=== PATIENT | male | born 1935 | race Caucasian/White ===

== ENCOUNTER → 2020-06-04 | Outpatient (CLI) | payer OTHER ==
[2020-06-04 12:21] LABS: BASOPHILS ABSOLUTE AUTO 0.04 K/mm3 (0.00-0.23); BASOPHILS PERCENT AUTO 0 % (0-2); EOSINOPHILS PERCENT AUTO 2 % (0-6); Hematocrit 44.4 % (37.0-53.0); Hemoglobin 15.1 g/dL (13.5-17.5); IMMATURE GRAN ABSOLUTE AUTO 0.03 K/mm3 (0.00-0.10); IMMATURE GRAN PERCENT AUTO 0 % (0-1); LYMPHOCYTES ABSOLUTE AUTO 1.46 K/mm3 (0.84-5.20); LYMPHOCYTES PERCENT AUTO 14 % (21-46); MONOCYTES PERCENT AUTO 6 % (4-13); Mean Corpuscular HGB 32.5 pg (26.0-34.0); Mean Corpuscular Volume 96 fL (80-100); Mean Platelet Volume 10.7 fL (9.1-12.4); NEUTROPHILS ABSOLUTE AUTO 7.82 K/mm3 (1.96-9.15); NEUTROPHILS PERCENT AUTO 77 % (41-73); Platelet Count 191 K/mm3 (150-400); RDW Coefficient Variation 12.4 % (11.7-14.2); RDW Standard Deviation 43.3 fL (35.1-46.3); Red Blood Cell Count 4.64 M/mm3 (4.30-5.90); White Blood Cell Count 10.15 K/mm3 (4.00-11.30)
[2020-06-04 12:32] LABS: Alanine Aminotransfer (ALT/SGP 34 U/L (12-78); Albumin, Blood 3.8 g/dL (3.4-5.0); Albumin/Globulin Ratio 1.1 (0.8-1.8); Alk Phos 166 U/L (50-136); Anion Gap 5 mmol/L (6-16); Aspartate Aminotrans (AST/SGOT 18 U/L (12-37); Bilirubin, Total 0.8 mg/dL (0.1-1.0); Blood Urea Nitrogen 20 mg/dL (8-24); Bun/Creatinine Ratio 17.1 (12.0-20.0); CO2, Blood 27 mmol/L (21-32); Calcium, Blood 8.7 mg/dL (8.5-10.1); Chloride, Blood 105 mmol/L (98-108); Creatinine, Blood 1.17 mg/dL (0.60-1.20); Globulin, Blood 3.6 g/dL (2.2-4.0); Glomerular Filtration Rate >60 (60-); Glucose, Blood 377 mg/dL (70-99); Potassium, Blood 4.7 mmol/L (3.5-5.5); Sodium, Blood 137 mmol/L (136-145); Total Protein, Blood 7.4 g/dL (6.4-8.2)
== END ==
LOC: LAB SHORT 10:25 → LAB 10:25
PROVIDERS: Family Medicine
DX: R10.9 Unspecified abdominal pain (principal)
CPT/HCPCS: 80053; 83036; 85025

== ENCOUNTER 2021-01-26 15:10 | Emergency (ER) | payer OTHER ==
[~2021-01-26] VITALS: Ht 172.7 cm; Wt 90.7 kg
[2021-01-26 15:39] LABS: BASOPHILS ABSOLUTE AUTO 0.03 K/mm3 (0.00-0.23); BASOPHILS PERCENT AUTO 0 % (0-2); EOSINOPHILS ABSOLUTE AUTO 0.21 K/mm3 (0.00-0.68); EOSINOPHILS PERCENT AUTO 2 % (0-6); Hematocrit 43.1 % (37.0-53.0); Hemoglobin 14.7 g/dL (13.5-17.5); IMMATURE GRAN ABSOLUTE AUTO 0.04 K/mm3 (0.00-0.10); IMMATURE GRAN PERCENT AUTO 0 % (0-1); LYMPHOCYTES ABSOLUTE AUTO 1.81 K/mm3 (0.84-5.20); LYMPHOCYTES PERCENT AUTO 18 % (21-46); MONOCYTES ABSOLUTE AUTO 0.83 K/mm3 (0.16-1.47); MONOCYTES PERCENT AUTO 8 % (4-13); Mean Corpuscular HGB Conc 34.1 g/dL (31.5-36.5); Mean Corpuscular Volume 97 fL (80-100); Mean Platelet Volume 10.1 fL (9.1-12.4); NEUTROPHILS ABSOLUTE AUTO 7.02 K/mm3 (1.96-9.15); NEUTROPHILS PERCENT AUTO 71 % (41-73); Platelet Count 197 K/mm3 (150-400); RDW Coefficient Variation 12.4 % (11.7-14.2); RDW Standard Deviation 44.1 fL (35.1-46.3); Red Blood Cell Count 4.46 M/mm3 (4.30-5.90); White Blood Cell Count 9.94 K/mm3 (4.00-11.30)
[2021-01-26 15:59] LABS: Alanine Aminotransfer (ALT/SGP 31 U/L (12-78); Albumin, Blood 3.3 g/dL (3.4-5.0); Albumin/Globulin Ratio 0.9 (0.8-1.8); Alk Phos 156 U/L (50-136); Anion Gap 7 mmol/L (6-16); Aspartate Aminotrans (AST/SGOT 14 U/L (12-37); Bilirubin, Direct 0.1 mg/dL (0.0-0.3); Bilirubin, Indirect 0.4 mg/dL (0.1-0.7); Bilirubin, Total 0.5 mg/dL (0.1-1.0); Blood Urea Nitrogen 29 mg/dL (8-24); Bun/Creatinine Ratio 18.1 (12.0-20.0); CO2, Blood 23 mmol/L (21-32); Calcium, Blood 8.5 mg/dL (8.5-10.1); Chloride, Blood 108 mmol/L (98-108); Globulin, Blood 3.7 g/dL (2.2-4.0); Glomerular Filtration Rate 41 (60-); Glucose, Blood 266 mg/dL (70-99); Potassium, Blood 4.5 mmol/L (3.5-5.5); Sodium, Blood 138 mmol/L (136-145); Troponin I <0.015 ng/mL (0.000-0.040)
[2021-01-26] MEDS ORDERED: ALMACONE SUSPE355 ML PO (17:35)
[2021-01-26] MEDS ORDERED: GABAPENTIN600 MG PO (18:19)
[2021-01-26] MEDS ORDERED: BASAGLAR K100 UNIT/3 SC (18:20)
[2021-01-26] MEDS ORDERED: ATOR40TA PO (18:28)
[2021-01-26] MEDS ORDERED: LOW DOSE ASPIRI81 M1 PO (18:29)
[2021-01-26] MEDS ORDERED: JARDIANCE25 MG PO (18:29)
[2021-01-26] MEDS ORDERED: ZESTRIL40 M1 PO (18:30)
== END 2021-01-26 20:17 | disposition home or self-care (01) ==
LOC: ER 15:10
PROVIDERS: Student in an Organized Health Care Education/Training Program
DX: R07.89 Other chest pain (principal); E11.65 Type 2 diabetes mellitus with hyperglycemia; I25.2 Old myocardial infarction; Z79.899 Other long term (current) drug therapy
CPT/HCPCS: 71046; 80048; 80076; 83690; 84484; 85025; 93005; 93010; 99285-25; J7030

== ENCOUNTER 2021-08-29 12:00 | Inpatient (IN) | payer OTHER ==
[~2021-08-29] VITALS: Ht 172.7 cm; Wt 90.7 kg
[~2021-08-29 12:00] MED LIST: ALMACONE SUSPE355 ML PO; ATOR40TA PO; BASAGLAR K100 UNIT/3 SC; BISA10S PR; DOC250 PO; GABAPENTIN600 MG PO; HYDR1TAB94 PO; JARDIANCE25 MG PO; LOW DOSE ASPIRI81 M1 PO; ONDA4ODT MM; ZESTRIL40 M1 PO
[2021-08-29] MEDS ORDERED: Bentyl20 MG PO (12:25)
[2021-08-29 12:54] LABS: BASOPHILS ABSOLUTE AUTO 0.02 K/mm3 (0.00-0.23); BASOPHILS PERCENT AUTO 0 % (0-2); EOSINOPHILS PERCENT AUTO 0 % (0-6); Hematocrit 46.5 % (37.0-53.0); Hemoglobin 16.3 g/dL (13.5-17.5); IMMATURE GRAN ABSOLUTE AUTO 0.07 K/mm3 (0.00-0.10); IMMATURE GRAN PERCENT AUTO 0 % (0-1); LYMPHOCYTES ABSOLUTE AUTO 0.58 K/mm3 (0.84-5.20); LYMPHOCYTES PERCENT AUTO 3 % (21-46); MONOCYTES ABSOLUTE AUTO 0.72 K/mm3 (0.16-1.47); MONOCYTES PERCENT AUTO 4 % (4-13); Mean Corpuscular HGB 32.9 pg (26.0-34.0); Mean Corpuscular HGB Conc 35.1 g/dL (31.5-36.5); Mean Corpuscular Volume 94 fL (80-100); Mean Platelet Volume 10.1 fL (9.1-12.4); NEUTROPHILS ABSOLUTE AUTO 16.81 K/mm3 (1.96-9.15); NEUTROPHILS PERCENT AUTO 92 % (41-73); Platelet Count 220 K/mm3 (150-400); RDW Coefficient Variation 12.4 % (11.7-14.2); RDW Standard Deviation 43.1 fL (35.1-46.3); Red Blood Cell Count 4.95 M/mm3 (4.30-5.90)
[2021-08-29 13:20] LABS: Albumin, Blood 3.9 g/dL (3.4-5.0); Bun/Creatinine Ratio 22.9 (12.0-20.0); Calcium, Blood 9.8 mg/dL (8.5-10.1); Creatinine, Blood 1.88 mg/dL (0.60-1.20); Globulin, Blood 3.8 g/dL (2.2-4.0); Potassium, Blood 4.8 mmol/L (3.5-5.5); Total Protein, Blood 7.7 g/dL (6.4-8.2)
[2021-08-29 15:46] LABS: Source, Urine Clean Catch
[2021-08-29 16:19] LABS: Appearance, Urine Clear (Clear); Bilirubin, Urine Neg (Neg); Blood, Urine 1+ (Neg); Color, Urine Yellow (P-Yellow); Glucose Qualitative, Urine 4+ (Neg); Ketones, Urine 3+ (Neg); Leukocyte Esterase, Urine Neg (Neg); Nitrite, Urine Neg (Neg); Protein, Urine 2+ (Neg); Urobilinogen, Urine NORM (Normal)
[2021-08-29 16:47] LABS: Influenza A, PCR NEGATIVE (NEGATIVE); Influenza B, PCR NEGATIVE (NEGATIVE); Resp Syncytial Virus, PCR NEGATIVE (NEGATIVE); SARS-Cov-2 (COVID-19) PCR, MMC NEGATIVE (NEGATIVE)
[2021-08-29 16:50] LABS: Bacteria Few /hpf; Red Blood Cells, Urine 0-2 /hpf (0-2); Squamous Epithelial Cells Not Seen /hpf (Few); White Blood Cells, Urine 0-2 /hpf (0-5)
[2021-08-29 16:51] LABS: Amorphous Light (0-Heavy)
[2021-08-30 18:43] LABS: BASOPHILS ABSOLUTE AUTO 0.04 K/mm3 (0.00-0.23); BASOPHILS PERCENT AUTO 0 % (0-2); EOSINOPHILS PERCENT AUTO 0 % (0-6); Hematocrit 47.3 % (37.0-53.0); Hemoglobin 16.3 g/dL (13.5-17.5); IMMATURE GRAN ABSOLUTE AUTO 0.15 K/mm3 (0.00-0.10); IMMATURE GRAN PERCENT AUTO 1 % (0-1); LYMPHOCYTES ABSOLUTE AUTO 0.72 K/mm3 (0.84-5.20); LYMPHOCYTES PERCENT AUTO 3 % (21-46); MONOCYTES ABSOLUTE AUTO 1.61 K/mm3 (0.16-1.47); MONOCYTES PERCENT AUTO 6 % (4-13); Mean Corpuscular HGB 33.1 pg (26.0-34.0); Mean Corpuscular HGB Conc 34.5 g/dL (31.5-36.5); Mean Corpuscular Volume 96 fL (80-100); Mean Platelet Volume 10.2 fL (9.1-12.4); NEUTROPHILS ABSOLUTE AUTO 22.48 K/mm3 (1.96-9.15); NEUTROPHILS PERCENT AUTO 90 % (41-73); Platelet Count 220 K/mm3 (150-400); RDW Coefficient Variation 12.7 % (11.7-14.2); RDW Standard Deviation 44.7 fL (35.1-46.3); Red Blood Cell Count 4.93 M/mm3 (4.30-5.90)
[2021-08-30 19:03] LABS: Bun/Creatinine Ratio 38.7 (12.0-20.0); Creatinine, Blood 1.68 mg/dL (0.60-1.20)
[2021-08-30 19:08] LABS: U Amphetamine Screen Not Detected; U Barbituate Screen Not Detected; U Benzodiazapine Screen Not Detected; U Buprenorphine Screen Not Detected; U Cannabinoids Screen Not Detected; U Cocaine Screen Not Detected; U Methadone Screen Not Detected; U Methamphetamine Screen Not Detected; U Opiates Screen DETECTED; U Oxycodone Screen Not Detected; U Phencyclidine Screen Not Detected; U Propoxyphene Screen Not Detected
[2021-08-31 01:17] LABS: BASOPHILS ABSOLUTE AUTO 0.02 K/mm3 (0.00-0.23); BASOPHILS PERCENT AUTO 0 % (0-2); EOSINOPHILS PERCENT AUTO 0 % (0-6); Hematocrit 41.2 % (37.0-53.0); IMMATURE GRAN ABSOLUTE AUTO 0.17 K/mm3 (0.00-0.10); IMMATURE GRAN PERCENT AUTO 1 % (0-1); LYMPHOCYTES ABSOLUTE AUTO 1.06 K/mm3 (0.84-5.20); LYMPHOCYTES PERCENT AUTO 5 % (21-46); MONOCYTES ABSOLUTE AUTO 1.46 K/mm3 (0.16-1.47); MONOCYTES PERCENT AUTO 7 % (4-13); Mean Corpuscular Volume 97 fL (80-100); Mean Platelet Volume 9.8 fL (9.1-12.4); NEUTROPHILS ABSOLUTE AUTO 19.25 K/mm3 (1.96-9.15); NEUTROPHILS PERCENT AUTO 88 % (41-73); Platelet Count 173 K/mm3 (150-400); RDW Coefficient Variation 12.6 % (11.7-14.2); RDW Standard Deviation 44.9 fL (35.1-46.3); Red Blood Cell Count 4.24 M/mm3 (4.30-5.90); White Blood Cell Count 21.96 K/mm3 (4.00-11.30)
[2021-08-31 01:31] LABS: Bun/Creatinine Ratio 39.5 (12.0-20.0); Calcium, Blood 7.9 mg/dL (8.5-10.1); Creatinine, Blood 1.62 mg/dL (0.60-1.20); Potassium, Blood 4.4 mmol/L (3.5-5.5)
--- NOTE | 2021-08-31 06:09 | NUR ---
SHIFT SUMMARY PT WAS A NEW ADMIT DURING THE NIGHT, ARRIVING ON THE FLOOR AT . HE IS A 86 Y/O MALE, ADMITTED FOR DEPRESSION AND SI, CURRENTLY ON A 1:1 OBSERVATION FOR HIGH SUICIDE RISK. PT IS A&O X 3, THOUGH DOES NOT ANSWER MANY QUESTIONS, SHAKING HIS HEAD YES OR NO. NO C/O ACUTE PAIN, NAUSEA OR SOB. TELE SHOWED NSR C PAC AND PVC IN THE 90S. VITAL SIGNS OTHERWISE STABLE. NO OTHER ACUTE CHANGES IN PT CONDITION NOTED SINCE ADMISSION. WILL CONTINUE TO MONITOR AND TREAT PER EMAR UNTIL HAND OFF TO DAY SHIFT RN.
[2021-08-31 11:20] LABS: Magnesium, Blood 2.8 mg/dL (1.6-2.4); Thyroid Stimulating Hormone 0.187 uIU/mL (0.360-4.800)
--- NOTE | 2021-08-31 18:52 | NUR ---
SHIFT SUMMARY PT IS DOING BETTER THIS AFTERNOON. HE HAS BEEN VERY COMPLAINT TODAY AND PLEASANT. HE MENTIONED TO ME THAT HE WAS NO SUICIDAL BUT THAT HE FELT HE HAD AN ISSUE WITH HIS MEMEORY AND THAT IF HE WENT HOME THAT SOMETHING BACK WOULD HAPPEN BECAUSE OF IT. HE SPOKE TO THE PATIENT TRAVEL REGISTERED NURSE ICU AND HIS SITER TODAY AND WAS AGREEABLE TO GO TO ASSISTED LIVING. UNTIL HIS ISTER IA ABLE TO GET GAURDIANSHIP OF HIM IT HAS BEEN RECCOMENDED THAT HE ATTEND IN PATIENT PSYCH. HE HAS DENIED PAIN AND WAS VERY PLEASE TO HAS HIS DIET CHANGED. TO MECHANICAL SOFT. HE WAS EVALUATED BY SPEECH AND LANGUEGE AND THEY DETERMINED THAT HIS ISSUE WITH SWALLOWING MAY BE FROM AN IRRITATION IN HIS THROAT. WILL CONTINUE TO MONITOR.
--- NOTE | 2021-09-01 02:42 | NUR ---
PT HAS DRY/SCALING SKIN; APPLIED LOTION TO LOWER EXTREMITIES; PT REPORTS APPLICATION TO BE SOOTHNG TO SKIN.
--- NOTE | 2021-09-01 04:07 | NUR ---
DISTRIBUTOR PUBLICATIONS SUMMARY VOICED LOOKING FORWARD TO LIVING AT HS WHEN STAFF DOING ASSESSMENT AND CHANGING HIM FOR INCONTINENCE. IVF OF NS INFUSED. VOICED APPRECIATION FOR STAFF GIVING HIM CARE. CALL LIGHT IN REACH. MED TELE HAVING IRREGULARITIES, MD NOTIFIED AND EKG ORDERED AND DONE, NOTED SOME DIFFERENCES COMPARED TO ANOTHER RECENT ONE, MD WAS NOTIFIED AND ACKNOWLEDGED SAID DIFFERENCES, BUT SAID NO TREATMENT WAS WARRANTED. RESTING QUIETLY AT THIS TIME. ASYMPTOMATIC
[2021-09-01 05:56] LABS: BASOPHILS ABSOLUTE AUTO 0.02 K/mm3 (0.00-0.23); BASOPHILS PERCENT AUTO 0 % (0-2); EOSINOPHILS ABSOLUTE AUTO 0.07 K/mm3 (0.00-0.68); EOSINOPHILS PERCENT AUTO 1 % (0-6); Hematocrit 44.3 % (37.0-53.0); Hemoglobin 14.7 g/dL (13.5-17.5); IMMATURE GRAN ABSOLUTE AUTO 0.07 K/mm3 (0.00-0.10); IMMATURE GRAN PERCENT AUTO 1 % (0-1); LYMPHOCYTES ABSOLUTE AUTO 1.88 K/mm3 (0.84-5.20); LYMPHOCYTES PERCENT AUTO 14 % (21-46); MONOCYTES ABSOLUTE AUTO 1.01 K/mm3 (0.16-1.47); MONOCYTES PERCENT AUTO 7 % (4-13); Mean Corpuscular HGB 32.7 pg (26.0-34.0); Mean Corpuscular HGB Conc 33.2 g/dL (31.5-36.5); Mean Corpuscular Volume 98 fL (80-100); Mean Platelet Volume 10.1 fL (9.1-12.4); NEUTROPHILS ABSOLUTE AUTO 10.53 K/mm3 (1.96-9.15); NEUTROPHILS PERCENT AUTO 78 % (41-73); Platelet Count 150 K/mm3 (150-400); RDW Coefficient Variation 12.4 % (11.7-14.2); RDW Standard Deviation 44.9 fL (35.1-46.3); White Blood Cell Count 13.58 K/mm3 (4.00-11.30)
[2021-09-01 06:22] LABS: Bun/Creatinine Ratio 37.1 (12.0-20.0); Calcium, Blood 8.2 mg/dL (8.5-10.1); Creatinine, Blood 1.43 mg/dL (0.60-1.20); Potassium, Blood 4.4 mmol/L (3.5-5.5)
[2021-09-01 08:22] LABS: Magnesium, Blood 3.1 mg/dL (1.6-2.4); Phosphorus, Blood 2.3 mg/dL (2.5-4.9)
--- NOTE | 2021-09-01 18:31 | NUR ---
SHIFT SUMMARY: NO ACUTE EVENTS, NO EVENTS ON TELEMETRY, A FIB 60'S. DENIED PAIN. GETTING UP TO CHAIR WITH 1-2 PERSON, GAIT BELT, AND FWW. DENIED SI, STATED HE'S HAPPY TO BE ALIVE. TAKING MEDS CAUSING DISCOMFORT WITH ESOPHAGITIS, NOW CRUSHING THEM WHICH IS BETTER FOR HIM. CONTINENT OF URINE AT TIMES, MOSTLY INCONTINENT, WEARING ATTENDS. TOLERATING PUREED DIET, NO NAUSEA. SISTER DIETER VISITED FOR A SHORT TIME THIS MORNING.
--- NOTE | 2021-09-02 04:11 | NUR ---
PT GAVE CONSENT TO PROVIDE CARE ON 09/01/21.
--- NOTE | 2021-09-02 04:12 | NUR ---
PT IS A&O X 3. VS STABLE. RATE 62 RHYTHM AFIB. 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 PT ABLE TO AMBULATE TO TOILET WITH 1PA WITH GB AND FWW. PT WAS CONTINENT OF URINE x 2. PT CONTINENT OF BOWELS HAD BM SMALL BROWN FORMED. PT STATED THAT HIS SISTER HAD FOUND PLACEMENT IN A FACILITY IN [place] AND THAT HE WAS LOOKING FORWARD TO GOING THERE. PT STATED THAT HE NO LONGER IS EXPERIENCING SI. PT IS CURRENTLY ASLEEP WITH CALL LIGHT WITHIN REACH.
[2021-09-02 05:03] LABS: Hematocrit 39.1 % (37.0-53.0); Hemoglobin 13.4 g/dL (13.5-17.5); Mean Corpuscular HGB 32.8 pg (26.0-34.0); Mean Corpuscular HGB Conc 34.3 g/dL (31.5-36.5); Mean Corpuscular Volume 96 fL (80-100); Mean Platelet Volume 10.4 fL (9.1-12.4); Platelet Count 141 K/mm3 (150-400); RDW Coefficient Variation 12.3 % (11.7-14.2); RDW Standard Deviation 43.2 fL (35.1-46.3); Red Blood Cell Count 4.08 M/mm3 (4.30-5.90); White Blood Cell Count 11.25 K/mm3 (4.00-11.30)
[2021-09-02 05:32] LABS: Albumin, Blood 2.5 g/dL (3.4-5.0); Anion Gap 6 mmol/L (6-16); Blood Urea Nitrogen 37 mg/dL (8-24); Bun/Creatinine Ratio 30.1 (12.0-20.0); CO2, Blood 24 mmol/L (21-32); Chloride, Blood 113 mmol/L (98-108); Creatinine, Blood 1.23 mg/dL (0.60-1.20); Glomerular Filtration Rate 56 (60-); Glucose, Blood 121 mg/dL (70-99); Phosphorus, Blood 2.6 mg/dL (2.5-4.9); Potassium, Blood 4.3 mmol/L (3.5-5.5); Sodium, Blood 143 mmol/L (136-145)
--- NOTE | 2021-09-02 19:17 | NUR ---
PATIENT IS ON TELE AND WAS RUNNING AFIB, FOR A TIME TODAY. HE COMPLAINS OF THROAT PAIN WELL, THAT INTERFERES WITH EATING. DURING DINNER, HE BEGAN TO COMPLAIN OF CHEST PAIN, AND INTO THE THROAT. TELE SAID AT THIS TIME (545PM) HE WAS CONVERTED BACK TO SINUS RHYTHM, 63. DR. LUCAS WAS CALLED AND HE ORDERED PRN GI COCKTAIL TO HAVE ON THE EMAR, BELIEVING IT TO BE GI VS CARDIAC SINCE IT BEGAN WHEN PATIENT WAS EATING. PATIENT DID HAVE A VISITOR TODAY, HIS SISTER WHO IS ARRANGING PLACEMENT IN [place]. HER PHONE NUMBER IS ON THE BOARD IN THE PATIENTS ROOM, IF NEEDED.
--- NOTE | 2021-09-02 23:45 | NUR ---
PT GAVE CONSENT TO PROVIDE CARE ON 09/02/21.
--- NOTE | 2021-09-03 03:43 | NUR ---
PT IS A&O x 4. VS STABLE. PT IS ON TELE WITH RATE OF 68 AND NORMAL SINUS RYHTHM. PT HAD COMPLAINT OF CHEST PAIN WITH A BURNING SENSATION IN LOWER ESOPHAGUS. GI COCKTAIL ADMINSTERED PER EMAR. PT STATED BURNING SENSATION SUBSIDED AFTER GI COCKTAIL. PT HAD MEPILEX DRESSINGS APPLIED TO ELBOWS BILATERALLY FOR PRESSURE ULCER PREVENTION. LOTION APPLIED TO LOWER EXTREMITIES AND UPPER BODY FOR DRY SKIN. PT IS CURRENTLY ASLEEP WITH CALL LIGHT WITHIN REACH.
--- NOTE | 2021-09-03 04:49 | NUR ---
I HAVE READ AND AGREE WITH [employer] HANDLE ASSEMBLER DOCUMENTATION FOR 09/01 AND 09/02 NOC SHIFT.
--- NOTE | 2021-09-03 18:02 | NUR ---
SHIFT SUMMARY PATIENT IS ALERT AND ORIENTED X4. PATIENT IS ON TELE AND HAS BEEN NSR ALL SHIFT. PATIENT HAS HAD NO ACUTE EVENTS THIS SHIFT. VITAL SIGNS REVIEWED. PATIENT HAS NOT COMPLAINED OF PAIN, NAUSEA, SOB OR VOMITTING THIS SHIFT. PATIENT HAS BEEN RESTING MOST OF SHIFT. PATIENT IS A ONE PERSON ASSIST TO BATHROOM. BED IN LOCKED AND LOWEST POSITION. CALL LIGHT IN PLACE. WILL MONITOR UNTIL SHIFT CHANGE.
--- NOTE | 2021-09-04 05:38 | NUR ---
SHIFT SUMMARY PATIENT HAD NO ACUTE CHANGES. AXOX 4 AND ONE ASSIST TO BATHROOM. PIV REMAINS INTACT. TELEMETRY A FIB 70'S. REPORTS THROAT PAIN AT TIMES WHEN SWALLOWING. DENIES SOB AND N/V. TAKES MEDICATION CRUSHED IN APPLESAUCE. NO SUICIDAL IDEATION. VSS/AFEBRILE. CALL LIGHT IN REACH. BED IN LOWEST POSITION. WILL CONTINUE TO MONITOR UNTIL DAY SHIFT NURSE ASSUMES CARE.
--- NOTE | 2021-09-04 16:16 | NUR ---
SHIFT SUMMARY PT AxOx4. PLEASANT AND COOPERATIVE WITH CARE. PT WORKED WITH PHYSICAL THERAPY AND SPEECH THERAPY TODAY. PUREE DIET REMAINS. PT DOING WELL GETTING UP AND WALKING AROUND ROOM/TO BATHROOM WITH SBA AND FWW. PT REPORTED SOME PAIN THIS AM IN CHEST/ESOPHAGUS THIS AM. MEDICATED PER EMAR WITH REPORTED RELIEF. TELE DC'D. VITALS REVIEWED. PT CURRENTY RESTING IN BED WITH CALL LIGHT IN REACH. PLACEMENT TO LTC PENDING. CASEMANAGER WORKING WITH SISTER ON DC PLAN.
--- NOTE | 2021-09-05 04:50 | NUR ---
SHIFT SUMMARY Patiet slept throughout the night, VSS on RA, patient denies shortness of breath, reporting pain to his throat as a burning pain x1, patient states that this is chronic pain for him and that occurs with swallowing, meds crushed in applesauce when able to avoid discomfort PRN tylenol administered, patient reported improvement in pain, up to the restroom with SBA and FWW x1, repositioning self in bed, minimal requests noted this shift
--- NOTE | 2021-09-05 17:54 | NUR ---
PT PLEASANT TODAY DID GET UP TO BATHROOM TWICE AT LEAST. 1 ASST WITH FWW. GOT SHOWER TODAY. WE TALKED ABOUT HIS HUNTING DAYS, IN , AND SOME ABOUT HIS WAR DAYS. STATES SHOT A WATER [place]FFALO WHEN HE WAS IN THE SERVICE. NO NEW CONCERNS NOTED. SISTER IN TO LIBRARY CIRCULATION ASSISTANT PUBLIC RECORDS OFFICER LIST. DONE. NO NEW CONCERNS NOTED. BED IN LOW POSITION, CALL LITE IN REACH, CALLS APPROP. BED ALARM ON FOR SAFETY
[2021-09-06 05:02] LABS: BASOPHILS ABSOLUTE AUTO 0.05 K/mm3 (0.00-0.23); BASOPHILS PERCENT AUTO 1 % (0-2); EOSINOPHILS ABSOLUTE AUTO 0.32 K/mm3 (0.00-0.68); EOSINOPHILS PERCENT AUTO 3 % (0-6); Hematocrit 43.7 % (37.0-53.0); Hemoglobin 14.7 g/dL (13.5-17.5); IMMATURE GRAN ABSOLUTE AUTO 0.07 K/mm3 (0.00-0.10); IMMATURE GRAN PERCENT AUTO 1 % (0-1); LYMPHOCYTES ABSOLUTE AUTO 2.24 K/mm3 (0.84-5.20); LYMPHOCYTES PERCENT AUTO 22 % (21-46); MONOCYTES ABSOLUTE AUTO 1.01 K/mm3 (0.16-1.47); MONOCYTES PERCENT AUTO 10 % (4-13); Mean Corpuscular HGB 32.3 pg (26.0-34.0); Mean Corpuscular HGB Conc 33.6 g/dL (31.5-36.5); Mean Corpuscular Volume 96 fL (80-100); Mean Platelet Volume 10.4 fL (9.1-12.4); NEUTROPHILS ABSOLUTE AUTO 6.32 K/mm3 (1.96-9.15); NEUTROPHILS PERCENT AUTO 63 % (41-73); Platelet Count 186 K/mm3 (150-400); RDW Coefficient Variation 12.3 % (11.7-14.2); RDW Standard Deviation 43.7 fL (35.1-46.3); Red Blood Cell Count 4.55 M/mm3 (4.30-5.90); White Blood Cell Count 10.01 K/mm3 (4.00-11.30)
--- NOTE | 2021-09-06 05:11 | NUR ---
SHIFT SUMMARY NATACHA SLEPT THROUGHOUT THE NIGHT, A&OX3, DENIES SHORTNESS OF BREATH, REPORTING OCCASIONAL CHRONIC THROAT/CHEST PAIN, DESCRIBES THIS BURNING, PRN TYLENOL ADMINISTERED WITH COMPLETE RESOLVE OF PAIN, VSS ON RA, PATIENT UP WALKING IN THE ROOM WITH SBA AND FWW THIS SHIFT, INDEPENDENTLY REPOSITIONING SELF IN BED
[2021-09-06 05:34] LABS: Albumin, Blood 2.5 g/dL (3.4-5.0); Anion Gap 6 mmol/L (6-16); Blood Urea Nitrogen 45 mg/dL (8-24); Bun/Creatinine Ratio 24.9 (12.0-20.0); CO2, Blood 27 mmol/L (21-32); Calcium, Blood 8.8 mg/dL (8.5-10.1); Chloride, Blood 107 mmol/L (98-108); Creatinine, Blood 1.81 mg/dL (0.60-1.20); Glomerular Filtration Rate 36 (60-); Glucose, Blood 241 mg/dL (70-99); Phosphorus, Blood 3.5 mg/dL (2.5-4.9); Potassium, Blood 4.5 mmol/L (3.5-5.5); Sodium, Blood 140 mmol/L (136-145); Thyroxine (T4) 7.3 ug/dL (4.5-12.1)
--- NOTE | 2021-09-06 15:54 | NUR ---
Initial Pal Care consult - Pt receptive to visit. I explained that his sister was a neighbor and friend and that I had been the recipient of some of his art in the past year. Pt brightened at the mention of art. I had brought him some art supplies, colored pencils/pens and coloring books. He was very pleased to have them. Pt expressed anxiety about his declining physical and cognitive status. He states he had some [facility] [place] nurses or helpers looking in on him, helping a few times a week with meals and medications. He states that a month ago he could get by pretty well with that support in his home. He relocated to this area in 2020 to be near his sister Radha after a traumatic divorce and legal [place]. Pt's sister Radha contacted me re: declining status and her belief that Marcus will need more supportive care than the memory care facility she planned with CM. I updated CM and CM and Radha also spoke shortly afterward about evolving plan for GI consult, work up and procedure to assess dysphagia. Pal Care referral due to noticeable decline in past few days here and months prior. Radha has relocated to [place] 6 months ago and was not aware that Marcus's health and mental status was declining prior to this admission. Currently, pt's chief c/o is difficulty and discomfort with swallowing. He has also become incontinent. He was admitted here for Suicidal ideation with a definite and executable plan formulated. He had called his sister to say good bye as he planned to OD with his insulin. Radha contacted to request intervention and he was brought to hospital by EMS. I had a good social and therapeutic visit with Marcus. He was engaged, smiling and made good eye contact. He was articulate and able to tell me all of above. He asked that I call Radha back to update her on his scheduled GI procedure in am, which I did. Supportive visits planned. Will work with MIKE and Radha on advanced care planning as additional diagnotic results available to assist with care planning.
--- NOTE | 2021-09-06 18:35 | NUR ---
SHIFT SUMMARY- PT PLEASANT THROUGHOUT MOST OF DAY. PT VOICED FRUSTERATION OVER FOODTRAY MISHAP. PT APPETITE ADEQUATE. PT C/O PAIN WHEN SWALLOWING FOOD. INSTRUCTED PT TO CHEW AND SWALLOW SLOWER TO REDUCE PAIN. PT TALKATIVE AND RECEPTIVE THROUGHOUT SHIFT. PT HAD A VISIT FROM SISTER AROUND NOON. PT RESTING COMFORTABLY WITH CALL LIGHT AT SIDE, SIDE RAILS INGAGED. PT FAMILY AT BEDSIDE NOW.
--- NOTE | 2021-09-07 05:21 | NUR ---
SHIFT SUMMARY PATIENT ALERT AND ORIENTED. HAD NO COMPLAINTS OF PAIN OR SHORTNESS OF BREATH. NO ACUTE ISSUES NOTED OVERNIGHT. BED IN LOWEST POSITION WITH WHEELS LOCKED. CALL LIGHT WITHIN REACH. REPORT GIVEN TO ONCOMING RN.
--- NOTE | 2021-09-07 16:25 | NUR ---
SHIFT CHANGE PATIENT IS ALERT AND ORIENTED X3. PATIENT HAS MAINTAINED NPO STATUS SINCE THIS RN BEGAN SHIFT FOR EGD SCOPE. PATIENT HAS HAD MEDICATIONS CRUSHED IN APPLESAUCE, APPROVED WITH DAY SURGERY. PATIENT HAS BEEN PLEASENT AND COOPERATIVE WITH CARE. PATIENT HAS HAD NO ACUTE EVENTS THIS SHIFT. BED IN LOCKED AND LOWEST POSITION. WILL MONITOR UNTIL SHIFT CHANGE.
--- NOTE | 2021-09-07 16:58 | NUR ---
09/07/21 1658 Krystian Mendez History, Chart, Medications and Allergies reviewed before start of procedure. Patient confirms NPO status and agrees with scheduled surgery. 3-LEAD EKG REVIEWED WITH PHYSICIAN PRIOR TO START OF PROCEDURE. MONITOR INTACT WITH CONTINUOUS PULSE OXIMETRY AND INTERMITTENT BP. PATIENT DETERMINED TO BE ASA APPROPRIATE FOR PROPOFOL SEDATION PRIOR TO START OF PROCEDURE BY DR. ANTOINE
--- NOTE | 2021-09-08 06:07 | NUR ---
SHIFT SUMMARY PATIENT ALERT AND ORIENTED. HAD NO COMPLAINTS OF PAIN OR SHORTNESS OF BREATH. NO ACUTE ISSUES NOTED OVERNIGHT. CALL LIGHT WITHIN REACH. REPORT GIVEN TO ONCOMING RN.
[2021-09-08] MEDS ORDERED: ACET325 PO (10:53)
[2021-09-08] MEDS ORDERED: ATOR10 PO (10:54)
[2021-09-08] MEDS ORDERED: ASPI81CH PO (10:54)
[2021-09-08] MEDS ORDERED: GABA300 PO (10:55)
[2021-09-08] MEDS ORDERED: INSULANPEN SC (10:56)
[2021-09-08] MEDS ORDERED: HUMALOG KW100 UNIT/1 (10:59)
[2021-09-08] MEDS ORDERED: LISI20 PO (11:00)
[2021-09-08] MEDS ORDERED: MIRT15 PO (11:01)
[2021-09-08] MEDS ORDERED: METO25ER PO (11:01)
[2021-09-08] MEDS ORDERED: MIRALAX17 GM PO (11:02)
[2021-09-08] MEDS ORDERED: Prilosec10 M1 PO (11:02)
[2021-09-08] MEDS ORDERED: SUCR1 PO (11:03)
--- NOTE | 2021-09-08 12:50 | NUR ---
DISCHARGE SUMMARY PATIENT IS ALERT AND ORIENTATED X3-4. PATIENT HAS HAD NO COMPLAINTS OF PAIN, SOB, NAUSEA, VOMITTING THIS SHIFT. PATIENT HAS HAD NO ACUTE EVENTS THIS SHIFT. VITAL SIGNS REVIEWED. PATIENT WAS EDUCATED ON MEDICATIONS BY PHARMACIST. PATIENT AND SISTER WAS EDUCATED ON DISCHARGE INSTRUCTIONS. PATIENT WAS WHEELED OUT MY SENIOR ENVIRONMENTAL SCIENTIST DINORA AND SISTER.
== END 2021-09-08 12:45 | DRG 871 ==
LOC: ER 12:00 → MEDS 12:01 → EOR 12:01 → MEDS 08-30 21:42 → ENPENDDIS 09-08 10:55 → MEDS 09-08 12:45
PROVIDERS: Family Medicine; Internal Medicine; Student in an Organized Health Care Education/Training Program; ADMIT Emergency Medicine
PROC: 3E03329 Introduction of Other Anti-infective into Peripheral Vein, Percutaneous Approach (ICD-10-PCS; 2021-08-30)
PROC: 0DB68ZX Excision of Stomach, Via Natural or Artificial Opening Endoscopic, Diagnostic (ICD-10-PCS; 2021-09-07)
PROC: 0DB58ZX Excision of Esophagus, Via Natural or Artificial Opening Endoscopic, Diagnostic (ICD-10-PCS; 2021-09-07)
PROC: 0DB98ZX Excision of Duodenum, Via Natural or Artificial Opening Endoscopic, Diagnostic (ICD-10-PCS; principal; 2021-09-07 16:00)
DX: A41.9 Sepsis, unspecified organism (principal); J69.0 Pneumonitis due to inhalation of food and vomit; K20.91 Esophagitis, unspecified with bleeding; J18.9 Pneumonia, unspecified organism; R45.851 Suicidal ideations; K44.9 Diaphragmatic hernia without obstruction or gangrene; K25.9 Gastric ulcer, unspecified as acute or chronic, without hemorrhage or perforation; K26.9 Duodenal ulcer, unspecified as acute or chronic, without hemorrhage or perforation; D72.829 Elevated white blood cell count, unspecified; G89.29 Other chronic pain; R10.9 Unspecified abdominal pain; F32.A Depression, unspecified; K21.9 Gastro-esophageal reflux disease without esophagitis; R13.10 Dysphagia, unspecified; Z66 Do not resuscitate; E83.39 Other disorders of phosphorus metabolism; N28.1 Cyst of kidney, acquired; N18.30 Chronic kidney disease, stage 3 unspecified; K59.00 Constipation, unspecified; E78.5 Hyperlipidemia, unspecified; I48.91 Unspecified atrial fibrillation; E11.40 Type 2 diabetes mellitus with diabetic neuropathy, unspecified; I25.10 Atherosclerotic heart disease of native coronary artery without angina pectoris; I12.9 Hypertensive chronic kidney disease with stage 1 through stage 4 chronic kidney disease, or unspecified chronic kidney disease; E11.22 Type 2 diabetes mellitus with diabetic chronic kidney disease; Z79.82 Long term (current) use of aspirin; Z79.4 Long term (current) use of insulin; Z79.899 Other long term (current) drug therapy; I25.2 Old myocardial infarction; Z86.73 Personal history of transient ischemic attack (TIA), and cerebral infarction without residual deficits; Z98.890 Other specified postprocedural states; Z95.5 Presence of coronary angioplasty implant and graft
CPT/HCPCS: 0241U; 36415; 71045; 74176; 80048; 80053; 80069; 81001; 82947; 83605; 83690; 83735; 84100; 84145; 84436; 84443; 84484; 85025; 85027; 87040; 87086; 88305; 88312; 92526; 92610; 93005; 93010; 93306; 96374; 97110; 97116; 97161; 97166; 97530; 97535; 99285-25; A9270; C9113; G0378; J0696; J0780; J1815; J2405; J2550; J2704; J7030; J7120; Q3014